=== PATIENT | female | born 1980 | race Caucasian/White ===

== ENCOUNTER 2017-05-28 04:37 | Emergency (ER) | payer MEDICAID ==
[~2017-05-28] VITALS: Ht 152.4 cm; Wt 65.9 kg
[~2017-05-28 04:37] MED LIST: IBUP-676 PO; NOCURR
[2017-05-28] MEDS ORDERED: LORazepam 0.5 MG TABLET PO ONE (07:00)
[2017-05-28 08:47] LABS: AMPHET/METH SCREEN,URINE NEGATIVE (NEGATIVE); BARBITURATE SCREEN, URINE NEGATIVE (NEGATIVE); BENZODIAZEPINES SCREEN,URINE NEGATIVE (NEGATIVE); CANNABINOID SCREEN,URINE NEGATIVE (NEGATIVE); COCAINE SCREEN,URINE POSITIVE (NEGATIVE); METHADONE SCREEN, URINE NEGATIVE (NEGATIVE); OPIATE SCREEN,URINE NEGATIVE (NEGATIVE)
[2017-05-28 08:53] LABS: PHENCYCLIDINE SCREEN,URINE NEGATIVE (NEGATIVE)
[2017-05-28] MEDS ORDERED: ONDANSETRON HCL 4 MG/2 ML VIAL IVP ONE (09:30)
[2017-05-28 09:44] VITALS: BP 145/100
== END 2017-05-28 09:57 | disposition home or self-care (01) ==
LOC: EMS 04:38
DX: F14.90 Cocaine use, unspecified, uncomplicated (principal); R00.2 Palpitations; D64.9 Anemia, unspecified; I10 Essential (primary) hypertension; F17.210 Nicotine dependence, cigarettes, uncomplicated; Z98.890 Other specified postprocedural states; Z79.899 Other long term (current) drug therapy
CPT/HCPCS: 80307; 81002; 81025; 93005; 96374; 99285; J2405